=== PATIENT | male | born 1955 | race Two or more races ===

== ENCOUNTER 2017-03-27 07:03 | Emergency (ER) | payer BC, OTHER ==
--- NOTE | 2017-03-27 07:44 | ER Document Report ---
HPI - HPI Pain Level: 3 Notes: Patient is a 61-year-old male who presents to the ED complaining of left wrist pain status post twist injury while working two da patient states that he wasys ago. Breaking a piece of PVC pipe when he heard a pop in his wrist. Patient states that he did have some pain after that, but has overall not affected his ADLs. Patient states that he has no pain at rest. The pain is exacerbated with resisted twisting motions of the wrist. Patient states that his pain is primarily near his carpal bones. He has not noticed any obvious swelling or bruising. The pain does not radiate and is described as sharp pain. He has no numbness or tingling in his fingers. Patient states that otherwise he is able to move his wrist without any difficulties. Denies any drug allergies or other significant past medical history at this time. Denies any headache, fever, chest pain, palpitations, syncope, cough, shortness of breath, wheeze, dyspnea, abdominal pain, nausea/vomiting/diarrhea, dysuria, muscle paralysis/weakness, or rash. - ROS Notes: REVIEW OF SYSTEMS: CONSTITUTIONAL : Denies fever, chills, or sweats. Denies recent illness. EENT: Denies eye, ear, throat, or mouth pain or symptoms. Denies nasal or sinus congestion or discharge. Denies throat, tongue, or mouth swelling or difficulty swallowing. CARDIOVASCULAR: Denies chest pain. Denies palpitations or racing or irregular heart beat. Denies ankle edema. RESPIRATORY: Denies cough, cold, or chest congestion. Denies shortness of breath, difficulty breathing, or wheezing. GASTROINTESTINAL: Denies abdominal pain or distention. Denies nausea, vomiting , or diarrhea. Denies blood in vomitus, stools, or per rectum. Denies black, tarry stools. Denies constipation. GENITOURINARY: Denies difficulty urinating, painful urination, burning, frequency, blood in urine, or discharge. MUSCULOSKELETAL: see hpi SKIN: Denies rash, lesions or sores. NEUROLOGICAL: Denies confusion or altered mental status. Denies passing out or loss of consciousness. Denies dizziness or lightheadedness. Denies headache. Denies weakness or paralysis or loss of use of either side. Denies problems with gait or speech. Denies sensory loss, numbness, or tingling. ALL OTHER SYSTEMS REVIEWED AND NEGATIVE. Dictation was performed using [employer] voice recognition software - DERM Skin Color: Normal Past Medical History - Social History Smoking Status: Unknown if Ever Smoked Family History: None Patient has suicidal ideation: No Patient has homicidal ideation: No Renal/ Medical History: Denies: Hx Peritoneal Dialysis Skin Medical History: Comment Only Hx MRSA - MRSA SPUTUM 07/21 Vertical Provider Document - CONSTITUTIONAL Agree With Documented VS: Yes Notes: PHYSICAL EXAMINATION: GENERAL: Well-appearing, well-nourished and in no acute distress. LUNGS: Breath sounds clear to auscultation bilaterally and equal. No wheezes rales or rhonchi. HEART: Regular rate and rhythm without murmurs, rubs, gallops. Musculoskeletal: Lt wrist: FROM to passive/active. Strength 5+/5. + mild tenderness to palp near the capitate/lunate w/o scaphoid tenderness. Leonor neg. Tinel/phalen neg. Gamekeeper neg. N/V intact distal. No other bony tenderness. No ecchymosis, swelling, abrasion, laceration, or obvious deformity noted. Extremities: No cyanosis, clubbing, or edema b/l. Peripheral pulses 2+. Capillary refill less than 3 seconds. NEUROLOGICAL: Normal speech, normal gait. Normal sensory, motor exams PSYCH: Normal mood, normal affect. SKIN: Warm, Dry, normal turgor, no rashes or lesions noted. - INFECTION CONTROL TRAVEL OUTSIDE OF THE [place] IN LAST 30 DAYS: No - RESPIRATORY O2 Sat by Pulse Oximetry: 97 Course - Re-evaluation Re-evalutation: 03/27/17 08:24 Patient is an afebrile, well-hydrated, 61-year-old male who presents to the ED with left wrist pain, fracture of triquetrum and ?fx of distal radius (although no point tenderness). Vitals are stable. PE otherwise unremarkable for any neurovascular compromise or obvious ligament/tendon rupture. Low suspicion/ risk for any other septic joint, or compartment syndrome. Patient is aware that his condition can change from initial presentation and he needs to monitor symptoms closely and seek medical attention if any acute changes. A sugar tong splint was provided today. Conservative measures for symptoms. Recheck with your PCM this week. Call Ortho tomorrow to schedule a consult. Return to the ED with any worsening/concerning symptoms otherwise as reviewed in discharge. Patient is in agreement. - Vital Signs Vital signs: Temp Pulse Resp BP Pulse Ox 98.2 F 81 16 146/87 H 97 03/27/17 07:13 03/27/17 07:13 03/27/17 07:13 03/27/17 07:13 03/27/17 07:13 Procedures - Immobilization Left Wrist Time completed: 09:05 Pre-Proc Neuro Vasc Exam: Normal Immobilizer type: Sugar tong - reverse Performed by: PCT Post-Proc Neuro Vasc Exam: Normal, Unchanged from pre-exam Discharge - Discharge Clinical Impression: Left wrist pain Triquetral fracture Qualifiers: Encounter type: initial encounter Fracture type: closed Fracture alignment: nondisplaced Laterality: left Qualified Code(s): S62.115A - Nondisplaced fracture of triquetrum [cuneiform] bone, left wrist, initial encounter for closed fracture Condition: Stable Disposition: HOME, SELF-CARE Instructions: Ice & Elevation ([facility]), Warm Packs ([facility]) Additional Instructions: Rest, Ice, Compression, Elevation Use splint as directed Tylenol/ibuprofen as needed Light stretches daily Strength exercises as able Moist heat and massage may help F/u with your PCP in 2-3 days for a recheck Call Ortho tomorrow to schedule an appointment for further evaluation/treatment* Return to the ED with any worsening symptoms and/or development of fever, headache, chest pain, palpitations, syncope, shortness of breath, trouble breathing, abdominal pain, n/v/d, muscle weakness/paralysis, numbness/tingling, swelling, redness, or other worsening symptoms that are concerning to you. Forms: Elevated Blood Pressure Referrals: [facility] [Provider Group] - Follow up tomorrow
--- NOTE | 2017-03-27 08:09 | RADIOLOGY REPORT (SQ) ---
EXAM DESCRIPTION: WRIST LEFT 3 VIEWS COMPLETED DATE/TIME: 03/27/2017 7:50 am REASON FOR STUDY: left wrist pain s/p twist injury . Pain anterior/lateral left wrist. COMPARISON: None. NUMBER OF VIEWS: Three views. TECHNIQUE: AP, lateral, and oblique radiographic images acquired of the left wrist. LIMITATIONS: None. FINDINGS: MINERALIZATION: Normal. BONES: There is a linear sclerosis at the distal radius. There is a calcification at the posterior a spect of the carpal bones on the lateral view. Degenerative changes are seen at the radiocarpal join t with joint space narrowing. SOFT TISSUES: Soft tissue swelling at the wrist. IMPRESSION: Calcification at the posterior aspect of the carpal bones, suggestive of a triquetral fr acture. Linear sclerosis at the distal radius, a nondisplaced fracture cannot be excluded. Please c orrelate with point tenderness. Evaluation with MRI as clinically warranted. Soft tissue swelling at the wrist. TECHNICAL DOCUMENTATION: JOB ID: [id number] [employer]- All Rights Reserved
[2017-03-27 09:15] VITALS: BP 153/94
== END 2017-03-27 09:10 | disposition home or self-care (01) ==
LOC: ER 07:03
PROC: 2W3DX1Z Immobilization of Left Lower Arm using Splint (ICD-10-PCS; principal; 2017-03-27)
DX: S62.115A Nondisplaced fracture of triquetrum [cuneiform] bone, left wrist, initial encounter for closed fracture (principal); M25.532 Pain in left wrist; X50.1XXA Overexertion from prolonged static or awkward postures, initial encounter
CPT/HCPCS: 99283

== ENCOUNTER → 2017-07-23 | Outpatient (CLI) | payer SELFPAY ==
[2017-07-23 15:03] LABS: ANION GAP 14 (5-19); BLOOD UREA NITROGEN 14 mg/dL (7-20); CALCIUM 9.7 mg/dL (8.4-10.2); CARBON DIOXIDE 22 mmol/L (22-30); CHLORIDE 107 mmol/L (98-107); GLUCOSE 93 mg/dL (75-110); POTASSIUM 4.3 mmol/L (3.6-5.0); SODIUM 142.8 mmol/L (137-145)
== END ==
LOC: OD 10:16
PROVIDERS: ATTEND Physician Assistant
DX: E87.5 Hyperkalemia (principal)
CPT/HCPCS: 36415; 80048